=== PATIENT | female | born 1955 | race African-American/Black ===

== ENCOUNTER → 2016-08-22 | Outpatient (CLI) | payer BC ==
[~2016-08-22] MED LIST: ALBUTEROL17 GM INH; AMOXICILLIN875 MG PO; ANUCORT-HC25 MG/SUPP PR; AUGMENTIN PO; BACTRIM DS TABL1 TAB PO; CALTRATE 600 +1 EAC1 PO; CALTRATE PLUS T1 TAB PO; CALTRATE-600/VI1 TA1 PO; CENTRUM SILVER PO; CENTRUM SILVER1 EAC1 PO; CENTRUM SILVER1 EAC2 PO; CERTAGEN PO; CHLORHEXIDINE; CLARINEX5 MG PO; DEXILANT60 MG PO; DICYCLOMINE HCL20 MG PO; E-400 C-500 & B1 TAB; FLAGYL PO; FLEXERIL10 MG PO; NASONEX17 GM; NEXIUM PO; NORVASC10 MG PO; PERCOCET7.5 PO; PHENERGAN25 MG; REGLAN10 MG; VICODIN 5/1 TAB 5/50 PO; XANAX0.5 MG PO; [UNRECOGNIZED DRUG - OTHER] PO
--- NOTE | ~2016-08-22 | US49 ---
[facility] A Service of [facility] & [facility] / [facility] RADIOLOGY TEXT RESULTS PATIENT: GAMALIEL CONTE LOCATION: [facility] : 55 UNIT #: [id number] AGE: [address]: DALE PARSONS MD SEX: F ORDER DR: [id number] [facility] [address] [place], [place] [address] [id number] O MR#: [id number] Acc #: [id number] NAME: GAMALIEL CONTE. : 1955 SEX: F STUDY DATE/TIME: 08/22/2016 16:43 UNIT: [facility] ROOM: STUDY DESCRIPTION: US Extremity Non Vasc Complete Attending Physician: Dale Parsons M.D. Referring Physician: Dale Parsons M.D. Ordering Physician: Dale Parsons M.D. Primary Care Physician: Dale Parsons M.D. MEDICAL IMAGING REPORT This report is preliminary unless electronic signature is present EXAM Ultrasound of the right antecubital fossa, 08/22/2016. HISTORY Palpable abnormality, antecubital fossa, right side, for 1 year medially. No associated pain. No increase in size. FINDINGS Ultrasound of the site of palpated abnormality, right antecubital fossa medially, reveals a partially circumscribed 1.3-cm x 1.6-cm x 6-mm nodule, which is slightly echogenic to the surrounding subcutaneous tissue. It probably represents a small lipoma. Clinical correlation is recommended. IMPRESSION Probable 1.6-cm lipoma at the site of palpated abnormality, right antecubital fossa. Dictated by... Harpreet Navarrete M.D. THIS IS AN ELECTRONICALLY VERIFIED REPORT Harpreet Navarrete M.D. at 08/23/2016 8:30 AM Gerry TD: 08/22/2016 18:03 JOB #: [id number] MEDICAL IMAGING REPORT Page 1 of 1 COPY
== END | disposition home or self-care (01) ==
LOC: CGUS 15:04
DX: M79.89 Other specified soft tissue disorders (principal)
CPT/HCPCS: 76881

== ENCOUNTER → 2017-02-07 | Outpatient (CLI) | payer BC ==
--- NOTE | ~2017-02-07 | MY29 ---
[facility] A Service of [facility] RADIOLOGY TEXT RESULTS PATIENT: GAMALIEL CONTE [place] LOCATION: [facility] : 55 UNIT #: [id number] AGE: [address]: DALE PARSONS MD SEX: F ORDER DR: [id number] [facility] [place], [place] [address] [id number] O MR#: [id number] Acc #: [id number] NAME: GAMALIEL CONTE : 1955 SEX: F STUDY DATE/TIME: 02/07/2017 13:18 UNIT: [facility] ROOM: STUDY DESCRIPTION: MY GIDEON SCREENING W/ CAD BILAT Attending Physician: Dale Parsons M.D. Referring Physician: Dale Parsons M.D. Ordering Physician: Dale Parsons M.D. Primary Care Physician: Dale Parsons M.D. MEDICAL IMAGING REPORT This report is preliminary unless electronic signature is present EXAM Digital screening mammogram 02/07/2017 HISTORY 61-year-old woman. No risk elevation. Annual screen. COMPARISON Mammograms date to 10/30/2006 with most recent 09/21/2015. FINDINGS Digital imaging of each breast was completed utilizing a two-view examination of each breast in craniocaudal and mediolateral-oblique projections. Review and interpretation of digital mammograms include a second review in conjunction with FDA-approved CAD device. There is a normal parenchymal presentation bilaterally consistent with the patient's age. There are no breast masses imaged and no parenchymal asymmetry is visualized. There are no suspicious microcalcifications and I see no focal architectural disturbance. IMPRESSION Negative screening digital mammogram. One-year followup recommended. Patients over the age of 40 are entered into a reminder system with target due date for the next mammogram. A result letter will also be sent to the patient. BIRADS: 1 Negative Dictated by... Camacho Rich M.D. THIS IS AN ELECTRONICALLY VERIFIED REPORT [facility] A Service of [facility] & [facility] / [facility] RADIOLOGY TEXT RESULTS PATIENT: GAMALIEL CONTE [place]IS LOCATION: [facility] : 55 UNIT #: [id number] AGE: [address]: DALE PARSONS MD SEX: F ORDER DR: Camacho Rich M.D. at 02/07/2017 3:55 PM ASHLEY/anoop TD: 02/07/2017 15:19 JOB #: [id number] MEDICAL IMAGING REPORT Page 1 of 1 COPY
== END | disposition home or self-care (01) ==
LOC: CWCC 12:55
DX: Z12.31 Encounter for screening mammogram for malignant neoplasm of breast (principal)
CPT/HCPCS: G0202